=== PATIENT | male | born 1995 | race Caucasian/White ===

== ENCOUNTER → 2021-02-27 13:11 | Outpatient (CLI) | payer BC, SELFPAY ==
--- NOTE | ~2021-02-27 | US_ITS ---
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 TECHNIQUE: Testicular sonogram utilizing grayscale and Doppler COMPARISON: None. FINDINGS: The right testis measures 5.3 x 3.5 x 3.3 cm. The left testis measures 4.9 x 3.1 x 3.4 cm. Symmetric normal grayscale appearance to both testes. There is normal vascular flow to both testes. The right e pididymis is normal with normal vascular flow. There is a 7 mm very hypoechoic lesion in the left epi didymis with mild surrounding hyperemia but no internal vascular flow on color Doppler. Remainder of the left epididymis appears normal. There is no varicocele or hydrocele. IMPRESSION: 1. Normal bilateral testes. 2. Nonspecific 7 mm hypoechoic lesion at the left epididymis. The majority of epididymal lesions are benign. Although malignancy cannot be absolutely excluded there is no internal vascular flow to the l esion on color Doppler to more specifically suggest this. Most likely differential would include a sp erm granuloma, complex epididymal cyst, epididymal abscess, inflammatory pseudotumor or benign neopla sms, the most common being adenomatoid tumor. Reviewed, dictated and finalized at location A. [employer] IMPRESSION: 1. Normal bilateral testes. 2. Nonspecific 7 mm hypoechoic lesion at the left epididymis. The majority of e pididymal lesions are benign. Although malignancy cannot be absolutely excluded there is no internal vascular flow to the lesion on color Doppler to more spec ifically suggest this. Most likely differential would include a sperm granuloma , complex epididymal cyst, epididymal abscess, inflammatory pseudotumor or karlos gn neoplasms, the most common being adenomatoid tumor.
== END ==
PROVIDERS: Visit Provider Emergency Medicine
DX: N50.89 Other specified disorders of the male genital organs (principal)
CPT/HCPCS: 76870; 93976